=== PATIENT | female | born 2000 | race Hispanic/Latino ===

== ENCOUNTER 2018-10-07 22:50 | Emergency (ER) | payer MEDICAID, OTHER ==
[2018-10-07] MEDS ORDERED: KETOROLAC TROMETHAMINE 60 MG/2 ML VIAL ONE (23:29)
[2018-10-07] MEDS ORDERED: CYCLOBENZAPRINE HCL 10 MG TABLET ONE (23:30)
[2018-10-07] MEDS ORDERED: ONDANSETRON ODT 4 MG TAB ONE (23:30)
[2018-10-08 00:08] LABS: APPEARANCE,URINE Turbid (CLEAR); BILIRUBIN,URINE Small (NEGATIVE); COLOR,URINE Orange (YELLOW); GLUCOSE, URINE (UA) Negative (NEGATIVE); KETONES,URINE Negative (NEGATIVE); LEUKOCYTE ESTERASE ,URINE Moderate (NEGATIVE); NITRATE,URINE Positive (NEGATIVE); OCCULT BLOOD,URINE Large (NEGATIVE); PH,URINE 5.5 (5.0-8.0); PROTEIN,URINE POS 2+ mg/dL (NEGATIVE)
[2018-10-08 00:18] LABS: HCG,QUAL RESULT NEGATIVE (NEGATIVE)
[2018-10-08 00:25] LABS: BACTERIA,URINE Many /HPF (None Seen); MUCUS,URINE None Seen LPF (None Seen); RBC,URINE TNTC /HPF (0-1); SQUAMOUS EPITHELIAL CELL,UR None Seen /HPF (0-2); WBC,URINE 51-100 /HPF (0-1)
== END 2018-10-08 00:53 | disposition home or self-care (01) ==
LOC: EDH 22:50
DX: N94.6 Dysmenorrhea, unspecified (principal); R10.2 Pelvic and perineal pain; I10 Essential (primary) hypertension; Z90.49 Acquired absence of other specified parts of digestive tract
CPT/HCPCS: 81001; 81025; 87077; 87088; 87186; 96372; 99284; J1885

== ENCOUNTER 2019-05-17 14:32 | Emergency (ER) | payer SELFPAY ==
[2019-05-17] MEDS ORDERED: METOCLOPRAMIDE 10 MG TABLET ONE (15:05)
[2019-05-17] MEDS ORDERED: ACETAMINOPHEN EXTRA STRENGTH 500 MG TABLET ONE (15:06)
[2019-05-17] MEDS ORDERED: PROMETHAZINE HCL 25 MG/ML 1ML AMPULE IM ONE (15:49)
== END 2019-05-17 16:25 | disposition home or self-care (01) ==
LOC: EDH 14:32
DX: G44.209 Tension-type headache, unspecified, not intractable (principal); F45.8 Other somatoform disorders; R11.2 Nausea with vomiting, unspecified; I10 Essential (primary) hypertension; Z90.49 Acquired absence of other specified parts of digestive tract
CPT/HCPCS: 96372; 99283; J2550

== ENCOUNTER 2022-06-27 12:23 | Observation (INO) | payer MEDICAID ==
[~2022-06-27] VITALS: Ht 162.6 cm; Wt 99.8 kg
[2022-06-27 14:37] LABS: APPEARANCE,URINE CLOUDY (CLEAR); BILIRUBIN,URINE 0.5 mg/dL (NEGATIVE); COLOR,URINE YELLOW (YELLOW); GLUCOSE, URINE (UA) NEGATIVE (NEGATIVE); KETONES,URINE 10 mg/dL (NEGATIVE); LEUKOCYTE ESTERASE ,URINE 75 Leu/uL (NEGATIVE); NITRATE,URINE NEGATIVE (NEGATIVE); OCCULT BLOOD,URINE NEGATIVE (NEGATIVE); PROTEIN,URINE 50 mg/dL (NEGATIVE)
[2022-06-27 14:44] LABS: AMPHET/METH SCREEN,URINE NEGATIVE (NEGATIVE); BARBITURATE SCREEN, URINE NEGATIVE (NEGATIVE); BENZODIAZEPINES SCREEN,URINE NEGATIVE (NEGATIVE); CANNABINOID SCREEN,URINE NEGATIVE (NEGATIVE); COCAINE SCREEN,URINE NEGATIVE (NEGATIVE); OPIATE SCREEN,URINE NEGATIVE (NEGATIVE); PHENCYCLIDINE SCREEN,URINE NEGATIVE (NEGATIVE)
[2022-06-27 14:45] LABS: BACTERIA,URINE FEW /HPF (None Seen); MUCUS,URINE RARE LPF (None Seen); OTHER CASTS, URINE 1 /LPF (None Seen); SQUAMOUS EPITHELIAL CELL,UR MOD /HPF (0-2); YEAST,URINE BUDDING FEW /HPF (None Seen)
[2022-06-27] MEDS: LACTATED RINGERS 1000ML IV SCH ×2 (15:22→16:41)
[2022-06-27 15:46] LABS: HEMATOCRIT 27.5 % (36-48); MEAN CORPUSCULAR HEMOGLOBIN 26.1 pg (27.0-33.0); MEAN CORPUSCULAR VOLUME 81.6 fL (79-99); RED BLOOD CELL COUNT(AUTO) 3.37 MIL/uL (4.00-5.50); RED CELL DISTRIBUTION WIDTH 13.2 % (11.0-15.5)
[2022-06-27] MEDS ORDERED: AMPICILLIN 2GM VIAL IV SCH (16:00)
[2022-06-27] MEDS: AMPICILLIN 2GM+NS 100ML 100 ML IV SCH ×2 (16:10→22:36)
[2022-06-27 18:05] VITALS: BP 122/70
[2022-06-27 19:31] VITALS: BP 125/70
[2022-06-27] MEDS ORDERED: PNV11TAB5 PO (19:42)
[2022-06-27 22:40] VITALS: BP 131/66
[2022-06-28] MEDS: AMPICILLIN 2GM+NS 100ML 100 ML IV SCH ×2 (03:24→09:58)
[2022-06-28 03:35] VITALS: BP 121/70
[2022-06-28] MEDS: LACTATED RINGERS 1000ML IV SCH (04:28)
[2022-06-28 07:19] VITALS: BP 117/67
[2022-06-28] MEDS ORDERED: NITR100C4 PO (10:50)
[2022-06-28] MEDS ORDERED: DIPH,PERTUSS(ACELL),TET VAC/PF 0.5 ML VIAL IM ONE (11:00)
== END 2022-06-28 11:30 | disposition home or self-care (01) ==
LOC: EDH 12:23 → LDH 12:24 → WSH 18:02
PROVIDERS: ADMIT Obstetrics & Gynecology; ATTEND Obstetrics & Gynecology
DX: O26.893 Other specified pregnancy related conditions, third trimester (principal); R10.2 Pelvic and perineal pain; R10.9 Unspecified abdominal pain; O99.891 Other specified diseases and conditions complicating pregnancy; M54.9 Dorsalgia, unspecified; O10.913 Unspecified pre-existing hypertension complicating pregnancy, third trimester; Z3A.30 30 weeks gestation of pregnancy; Z23 Encounter for immunization
CPT/HCPCS: 96361 ×2; 96365; 96366 ×2; 80305; 85027; 87088; 81001; 36415; 90715; 90471; G0378 ×22; J7120 ×3; J0290 ×4; 96360